=== PATIENT | female | born 1990 | race African-American/Black ===

== ENCOUNTER 2019-08-03 06:58 | Emergency (ER) | payer SELFPAY ==
[2019-08-03] MEDS ORDERED: Sodium Chloride 0.9% 10 ML Syringe FLUSH PRN (07:03)
[2019-08-03] MEDS ORDERED: Sodium Chloride 0.9% 2.5 ML Syringe FLUSH PRN (07:03)
[2019-08-03] MEDS ORDERED: Sodium Chloride 0.9% 1,000 ML IV ONE ×2 (07:03→08:00)
[2019-08-03] MEDS ORDERED: Acetaminophen 500 MG Tab PO ONE (07:03)
[2019-08-03] MEDS ORDERED: Famotidine 20 MG/2 ML SDV IVPUSH ONE (07:11)
--- NOTE | 2019-08-03 07:11 | EDM.PDOC ---
ED HPI GENERAL MEDICAL PROBLEM - General Chief Complaint: General Stated Complaint: POSSIBLE ALLERGIC REACTION Time Seen by Provider: 08/03/19 07:02 - History of Present Illness INITIAL COMMENTS - FREE TEXT/NARRATIVE: History of present illness: 29-year-old female brought by EMS presenting with nausea, vomiting abdominal pain. Symptoms started about 2 hours ago immediately after eating 1 shrimp when she suddenly felt like her mouth was becoming swollen. She stopped eating shrimp immediately and took a Benadryl, however then she developed nausea and vomiting. She has never had any allergy to shrimp in the past, she has previously eaten shrimp many times before. She called EMS when she had been vomiting for 2 hours without stopping. They gave her Zofran IV fluids and her nausea and vomiting is now improved, however she is now having upper abdominal pain. Review of systems: As per history of present illness and below otherwise all systems reviewed and negative. Past medical history: As per history of present illness and as reviewed below otherwise noncontributory. Surgical history: As per history of present illness and as reviewed below otherwise noncontributory. Social history: No reported history of drug or alcohol abuse. Family history: As per history of present illness and as reviewed below otherwise noncontributory. Physical exam: GEN: no acute distress, well appearing HEENT: Atraumatic, normocephalic, mucous membranes moist, Neck: supple, nontender, trachea midline. Lungs: No respiratory distress. Heart: RRR Abdomen: Soft, nondistended, epigastric and right upper quadrant tenderness. Back: nontender Extremities: Atraumatic. Neurovascularly intact. Neuro: Awake, alert, oriented. Neuro Exam nonfocal. Skin: warm, dry, no lesions Diagnostics: [] Therapeutics: [] MDM: Impression: [] Plan: [] Definitive disposition and diagnosis as appropriate pending reevaluation and review of above. Treatments REVENUE STAMP CLERK: Reports: IV/IO throat Pain Score (Numeric/FACES): 2 - Related Data Allergies Allergy/AdvReac Type Severity Reaction Status Date / Time No Known Allergies Allergy Verified 08/03/19 06:59 Home Meds: Home Meds EPINEPHrine [Epinephrine] 0.3 mg IM ONETIME PRN #2 applic 08/03/19 [Rx] predniSONE [Prednisone] 60 mg PO DAILY 5 Days #15 tablet 08/03/19 [Rx] Past Medical History HEENT History: Reports: None Cardiovascular History: Reports: None Respiratory History: Reports: None Gastrointestinal History: Reports: None Genitourinary History: Reports: None SOLAR ENERGY SPECIALIST History: Reports: None Musculoskeletal History: Reports: None Neurological History: Reports: None Psychiatric History: Reports: None Endocrine/Metabolic History: Reports: None Insulin Pump Model and Manager Care Management: None Hematologic History: Reports: None Immunologic History: Reports: None Oncologic (Cancer) History: Reports: None Dermatologic History: Reports: None - Infectious Disease History Infectious Disease History: Reports: None - Past Surgical History Head Surgeries/Procedures: Reports: None Social & Family History - Family History Family Medical History: Noncontributory - Tobacco Use Smoking Status *Q: Never Smoker - Caffeine Use Caffeine Use: Reports: None - Recreational Drug Use Recreational Drug Use: No ED ROS GENERAL - Review of Systems Review Of Systems: See Below (see Dictation) ED EXAM, GENERAL - Physical Exam Exam: See Below (See dictation) Course - Vital Signs Last Recorded V/S: Last Vital Signs Temp 96.4 F L 08/03/19 07:00 Pulse 93 08/03/19 09:12 Resp 18 08/03/19 07:00 BP 100/52 L 08/03/19 09:12 Pulse Ox 98 08/03/19 09:12 - Orders/Labs/Meds Orders: Active Orders 24 hr Category Date Time Status Sodium Chloride 0.9% [Saline Flush] Med 08/03/19 07:03 Active 10 ml FLUSH ASDIRECTED PRN Sodium Chloride 0.9% [Saline Flush] Med 08/03/19 07:03 Active 2.5 ml FLUSH ASDIRECTED PRN Saline Lock Insert [OM.PC] Stat Oth 08/03/19 07:03 Ordered Medication Orders Sodium Chloride (Saline Flush) 10 ml FLUSH ASDIRECTED PRN PRN Reason: Keep Vein Open Sodium Chloride (Saline Flush) 2.5 ml FLUSH ASDIRECTED PRN PRN Reason: Keep Vein Open Labs: Laboratory Tests 08/03/19 08/03/19 08/03/19 Range/Units 07:20 07:20 07:20 WBC 16.67 H (4.0-11.0) K/uL RBC 4.28 L (4.30-5.90) M/uL Hgb 12.7 (12.0-16.0) g/dL Hct 38.6 (36.0-46.0) % MCV 90.2 (80.0-98.0) fL MCH 29.7 (27.0-32.0) pg MCHC 32.9 (31.0-37.0) g/dL RDW Std Deviation 45.6 (28.0-62.0) fl RDW Coeff of Elizabeth 14 (11.0-15.0) % Plt Count 262 (150-400) K/uL MPV 10.00 (7.40-12.00) fL Neut % (Auto) 90.0 H (48.0-80.0) % Lymph % (Auto) 6.8 L (16.0-40.0) % [place] % (Auto) 3.1 (0.0-15.0) % Eos % (Auto) 0.0 (0.0-7.0) % Baso % (Auto) 0.1 (0.0-1.5) % Neut # (Auto) 15.0 H (1.4-5.7) K/uL Lymph # (Auto) 1.1 (0.6-2.4) K/uL [place] # (Auto) 0.5 (0.0-0.8) K/uL Eos # (Auto) 0.0 (0.0-0.7) K/uL Baso # (Auto) 0.0 (0.0-0.1) K/uL Nucleated RBC % 0.0 /100WBC Nucleated RBCs # 0 K/uL Sodium 139 (136-145) mmol/L Potassium 4.7 (3.5-5.1) mmol/L Chloride 100 (98-107) mmol/L Carbon Dioxide 16.3 L (21.0-32.0) mmol/L BUN 13 (7.0-18.0) mg/dL Creatinine 0.9 (0.6-1.0) mg/dL Est Cr Clr Drug Dosing 87.90 mL/min Estimated GFR (MDRD) > 60.0 ml/min Glucose 72 L (74-106) mg/dL Calcium 8.7 (8.5-10.1) mg/dL Total Bilirubin 0.5 (0.2-1.0) mg/dL AST 39 H (15-37) IU/L ALT 24 (14-63) IU/L Alkaline Phosphatase 56 (46-116) U/L Total Protein 7.4 (6.4-8.2) g/dL Albumin 4.1 (3.4-5.0) g/dL Globulin 3.3 (2.6-4.0) g/dL Albumin/Globulin Ratio 1.2 (0.9-1.6) HCG, Qual NEGATIVE (NEG) Meds: Medications Generic Name Dose Route Start Last Admin Trade Name Fretamica PRN Reason Stop Dose Admin Sodium Chloride 10 ml 08/03/19 07:03 Saline Flush FLUSH ASDIRECTED PRN Keep Vein Open Sodium Chloride 2.5 ml 08/03/19 07:03 Saline Flush FLUSH ASDIRECTED PRN Keep Vein Open Discontinued Medications Generic Name Dose Route Start Last Admin Trade Name Alice PRN Reason Stop Dose Admin Acetaminophen 1,000 mg 08/03/19 07:03 08/03/19 07:17 Tylenol Extra Strength PO 08/03/19 07:04 1,000 mg ONETIME ONE Administration Epinephrine HCl 0.3 mg 08/03/19 08:15 08/03/19 08:25 Adrenalin IM 08/03/19 08:16 0.3 mg ONETIME ONE Administration Epinephrine HCl Confirm 08/03/19 08:17 08/03/19 08:28 Adrenalin Administered 08/03/19 08:18 Not Given Dose 1 mg .ROUTE .STK-MED ONE Famotidine 20 mg 08/03/19 07:11 08/03/19 07:18 Pepcid IVPUSH 08/03/19 07:12 20 mg ONETIME ONE Administration Sodium Chloride 1,000 mls @ 999 mls/hr 08/03/19 07:03 08/03/19 07:18 Normal Saline IV 08/03/19 08:03 999 mls/hr .Bolus ONE Administration Sodium Chloride 1,000 mls @ 999 mls/hr 08/03/19 08:00 08/03/19 08:07 Normal Saline IV 08/03/19 09:00 999 mls/hr .Bolus ONE Administration Ketorolac Tromethamine 15 mg 08/03/19 07:51 08/03/19 08:07 Toradol IVPUSH 08/03/19 07:52 15 mg ONETIME ONE Administration Prednisone 40 mg 08/03/19 09:44 08/03/19 09:53 Prednisone PO 08/03/19 09:45 40 mg ONETIME STA Administration - Re-Assessments/Exams Free Text/Narrative Re-Assessment/Exam: 08/03/19 08:03 Patient is feeling much better and sleeping comfortably. She reports her pain is much improved. We will try p.o. challenge and if symptoms not improved will give Toradol. 08/03/19 08:23 She was able to eat a sandwich, however she now feels that her mouth is hurting and burning and possibly swollen again. She does not have any difficulty breathing or rash nor any nausea, vomiting or abdominal pain at this time. I am concerned she may have some relapsing anaphylaxis given her symptoms earlier today that did respond to Benadryl, therefore epinephrine IM will be ordered. I discussed this at length with the patient as well. 08/03/19 10:01 Reassessed at 8:55. The patient was feeling much better. She felt that the abnormal sensation in her mouth was completely resolved. We discussed plan to monitor for 1 more hour. She is in agreement. The patient came out of the nursing station and reported that she had to leave immediately due to family emergency. Her heart rate was slightly elevated but she was very worried and anxious about her family member. Prescriptions were sent electronically to the nearest pharmacy and the patient agrees to pick them up soon as possible. She has no further signs or symptoms of anaphylaxis. Throat feels normal. No difficulty breathing. She is ambulating and in no acute distress. Will discharge immediately. Departure - Departure Time of Disposition: 09:53 Disposition: Home, Self-Care 01 Clinical Impression: Anaphylaxis Qualifiers: Encounter type: initial encounter Qualified Code(s): T78.2XXA - Anaphylactic shock, unspecified, initial encounter Vomiting Qualifiers: Vomiting type: unspecified Vomiting Intractability: non-intractable Nausea presence: with nausea Qualified Code(s): R11.2 - Nausea with vomiting, unspecified Abdominal pain Qualifiers: Abdominal location: generalized Qualified Code(s): R10.84 - Generalized abdominal pain - Discharge Information Prescriptions: EPINEPHrine [Epinephrine] 0.3 mg IM ONETIME PRN #2 applic PRN Reason: Other predniSONE [Prednisone] 60 mg PO DAILY 5 Days #15 tablet Instructions: Nausea and Vomiting, Adult, [id number], How to Use an Auto- Injector Pen, Abdominal Pain, Adult, [id number], Anaphylactic Reaction, Adult , [id number] Referrals: PCP,None [Primary Care Provider] - Forms: ED Department Discharge Additional Instructions: The following information is given to patients seen in the emergency department who are being discharged to home. This information is to outline your options for follow-up care. We provide all patients seen in our emergency department with a follow-up referral. The need for follow-up, as well as the timing and circumstances, are variable depending upon the specifics of your emergency department visit. If you don't have a primary care physician on staff, we will provide you with a referral. We always advise you to contact your personal physician following an emergency department visit to inform them of the circumstance of the visit and for follow-up with them and/or the need for any referrals to a consulting specialist. The emergency department will also refer you to a specialist when appropriate. This referral assures that you have the opportunity for follow-up care with a specialist. All of these measure are taken in an effort to provide you with optimal care, which includes your follow-up. Under all circumstances we always encourage you to contact your private physician who remains a resource for coordinating your care. When calling for follow-up care, please make the office aware that this follow-up is from your recent emergency room visit. If for any reason you are refused follow-up, please contact the [facility] Emergency Department at and asked to speak to the emergency department charge nurse. [facility] [address] [place] [id number] [facility] [address] [place] [id number] Sepsis Event Note (ED) - Evaluation Sepsis Screening Result: No Definite Risk - Focused Exam Vital Signs: Vital Signs Temp Pulse Resp BP Pulse Ox 08/03/19 09:12 93 100/52 L 98 08/03/19 08:27 100 113/71 97 08/03/19 07:42 88 111/59 L 97 08/03/19 07:12 91 121/68 97 08/03/19 07:00 96.4 F L 93 18 112/46 L 96 - My Orders Last 24 Hours: My Active Orders 08/03/19 07:03 Sodium Chloride 0.9% [Saline Flush] 10 ml FLUSH ASDIRECTED PRN Sodium Chloride 0.9% [Saline Flush] 2.5 ml FLUSH ASDIRECTED PRN Saline Lock Insert [OM.PC] Stat - Assessment/Plan Last 24 Hours: My Active Orders 08/03/19 07:03 Sodium Chloride 0.9% [Saline Flush] 10 ml FLUSH ASDIRECTED PRN Sodium Chloride 0.9% [Saline Flush] 2.5 ml FLUSH ASDIRECTED PRN Saline Lock Insert [OM.PC] Stat
[2019-08-03 07:50] LABS: BLOOD UREA NITROGEN,BUN 13 mg/dL (7.0-18.0); CARBON DIOXIDE,CO2 16.3 mmol/L (21.0-32.0); CHLORIDE,CL 100 mmol/L (98-107); GLUCOSE RANDOM 72 mg/dL (74-106); POTASSIUM,K 4.7 mmol/L (3.5-5.1); SODIUM,NA 139 mmol/L (136-145)
[2019-08-03] MEDS ORDERED: Ketorolac 15 MG/ML SDV IVPUSH ONE (07:51)
[2019-08-03] MEDS ORDERED: EPINEPHrine 1 MG/ML SDV IM ONE (08:15)
[2019-08-03] MEDS ORDERED: EPINEPHrine 1 MG/ML SDV ONE (08:17)
[2019-08-03] MEDS ORDERED: predniSONE 20 MG Tab PO STA (09:44)
== END 2019-08-03 10:00 | disposition home or self-care (01) ==
LOC: MW.ED 06:58
DX: T78.2XXA Anaphylactic shock, unspecified, initial encounter (principal); R11.2 Nausea with vomiting, unspecified; R10.84 Generalized abdominal pain; Z79.899 Other long term (current) drug therapy
CPT/HCPCS: 36415; 80053; 84703; 85025; 96361; 96372; 96374; 96375; 99285; A9270; J0171; J1885; J7030; S0028; J3490

== ENCOUNTER 2019-09-06 11:54 | Emergency (ER) | payer SELFPAY ==
--- NOTE | 2019-09-06 13:09 | CR ---
Left foot: 2 views of the left foot were obtained. Comparison: No prior foot exam is available. No discrete fracture or other bony abnormality is appreciated. Impression: 1. No abnormality is appreciated on left foot exam. Diagnostic code #1 This report was dictated in MDT
--- NOTE | 2019-09-06 14:19 | EDM.PDOC ---
ED HPI GENERAL MEDICAL PROBLEM - General Chief Complaint: Lower Extremity Injury/Pain Stated Complaint: TOE SPRAIN Time Seen by Provider: 09/06/19 13:23 - History of Present Illness INITIAL COMMENTS - FREE TEXT/NARRATIVE: History of present illness: 29-year-old female presenting with left great toe/foot pain. Apparently she was running last night and around 9 PM tripped and rolled her foot underneath her. She reports difficulty moving the toe since then. She has been able to bear weight on the foot. Review of systems: As per history of present illness and below otherwise all systems reviewed and negative. Past medical history: As per history of present illness and as reviewed below otherwise noncontributory. Surgical history: As per history of present illness and as reviewed below otherwise noncontributory. Social history: No reported history of drug or alcohol abuse. Family history: As per history of present illness and as reviewed below otherwise noncontributory. Physical exam: GEN: no acute distress, well appearing HEENT: Atraumatic, normocephalic, mucous membranes moist Neck: supple Extremities: Tenderness to palpation over the distal left foot/great toe. Limited range of motion due to pain and slightly decreased strength, however she is able to fully dorsiflex and plantarflex. No sensory deficit. Neurovascularly intact. Neuro: Awake, alert, oriented. Neuro Exam nonfocal. Skin: warm, dry, no lesions Diagnostics: X-ray left foot. Negative for fracture. Therapeutics: Abimael wrap and cast shoe. MDM: X-ray shows no fracture, however as the patient is reporting difficulty dorsiflexing and plantar flexing the foot, likely due to pain, however potential for mild tendon or ligamentous injury, will place an Abimael wrap and hard soled shoe and refer to podiatry. Impression: Left hallux sprain Plan: Podiatry Definitive disposition and diagnosis as appropriate pending reevaluation and review of above. L great toe Pain Score (Numeric/FACES): 10 - Related Data Allergies Allergy/AdvReac Type Severity Reaction Status Date / Time No Known Allergies Allergy Verified 09/06/19 12:07 Home Meds: Home Meds EPINEPHrine [Epinephrine] 0.3 mg IM ONETIME PRN #2 applic 08/03/19 [Rx] predniSONE [Prednisone] 60 mg PO DAILY 5 Days #15 tablet 08/03/19 [Rx] Past Medical History HEENT History: Reports: None Cardiovascular History: Reports: None Respiratory History: Reports: None Gastrointestinal History: Reports: None Genitourinary History: Reports: None FACILITY COORDINATOR History: Reports: None Musculoskeletal History: Reports: None Neurological History: Reports: None Psychiatric History: Reports: None Endocrine/Metabolic History: Reports: None Insulin Pump Model and Soap Tender: None Hematologic History: Reports: None Immunologic History: Reports: None Oncologic (Cancer) History: Reports: None Dermatologic History: Reports: None - Infectious Disease History Infectious Disease History: Reports: None - Past Surgical History Head Surgeries/Procedures: Reports: None Social & Family History - Family History Family Medical History: Noncontributory - Caffeine Use Caffeine Use: Reports: None Review of Systems - Review of Systems Review Of Systems: See Below (See HPI) ED EXAM, GENERAL - Physical Exam Exam: See Below (See HPI) Course - Vital Signs Last Recorded V/S: Last Vital Signs Temp 96.7 F L 09/06/19 12:05 Pulse 90 09/06/19 12:05 Resp 18 09/06/19 12:05 BP 100/61 09/06/19 12:05 Pulse Ox 100 09/06/19 12:05 - Orders/Labs/Meds Orders: Active Orders 24 hr Category Date Time Status DME for Discharge [COMM] Stat Oth 09/06/19 14:13 Ordered - Re-Assessments/Exams Free Text/Narrative Re-Assessment/Exam: 09/06/19 14:16 X-ray results and plan of care discussed with the patient. Will place an Abimael wrap and hard soled shoe/cast/postop shoe. Will refer for podiatry versus orthopedics follow-up. Departure - Departure Time of Disposition: 14:16 Disposition: Home, Self-Care 01 Clinical Impression: Sprain of toe, great, left - Discharge Information Instructions: How to Use Cold Therapy, Qsvz-fo-Mqoe, Turf Toe Rehab-SportsMed Referrals: PCP,None [Primary Care Provider] - Mauri Tello DPM [Physician] - 2 Days Forms: ED Department Discharge Additional Instructions: Ice the area that hurts. Take 600 mg of ibuprofen every 8 hours for the next 2 to 3 days. Keep the foot elevated as much as possible. Keep the Abimael wrap on and use the hard soled shoe whenever walking on your foot. Please follow-up with the utility assembler listed above or the orthopedic surgeon listed below in the next 1 to 2 days unless her symptoms have completely resolved during that time. The following information is given to patients seen in the emergency department who are being discharged to home. This information is to outline your options for follow-up care. We provide all patients seen in our emergency department with a follow-up referral. The need for follow-up, as well as the timing and circumstances, are variable depending upon the specifics of your emergency department visit. If you don't have a primary care physician on staff, we will provide you with a referral. We always advise you to contact your personal physician following an emergency department visit to inform them of the circumstance of the visit and for follow-up with them and/or the need for any referrals to a consulting specialist. The emergency department will also refer you to a specialist when appropriate. This referral assures that you have the opportunity for follow-up care with a specialist. All of these measure are taken in an effort to provide you with optimal care, which includes your follow-up. Under all circumstances we always encourage you to contact your private physician who remains a resource for coordinating your care. When calling for follow-up care, please make the office aware that this follow-up is from your recent emergency room visit. If for any reason you are refused follow-up, please contact the [facility] Emergency De partment at and asked to speak to the emergency department charge nurse. Please follow-up with orthopedic clinic in the next 2 days or the utility assembler listed above. [facility] - [facility] Professional Building [address] [place] [address], [address] [place] [address] Sepsis Event Note (ED) - Evaluation Sepsis Screening Result: No Definite Risk - My Orders Last 24 Hours: My Active Orders 09/06/19 14:13 DME for Discharge [COMM] Stat - Assessment/Plan Last 24 Hours: My Active Orders 09/06/19 14:13 DME for Discharge [COMM] Stat
== END 2019-09-06 14:51 | disposition home or self-care (01) ==
LOC: MW.ED 11:54
DX: S93.502A Unspecified sprain of left great toe, initial encounter (principal); Z79.899 Other long term (current) drug therapy; W01.0XXA Fall on same level from slipping, tripping and stumbling without subsequent striking against object, initial encounter
CPT/HCPCS: 73620-26-LT; 73620-LT; 99282; 99283-25

== ENCOUNTER 2019-09-14 13:29 | Emergency (ER) | payer SELFPAY | END 2019-09-14 14:17 | disposition left against medical advice (07) | LOC: MW.ED 13:29 | DX: Z53.21 Procedure and treatment not carried out due to patient leaving prior to being seen by health care provider (principal) ==

== ENCOUNTER 2020-04-18 18:08 | Emergency (ER) | payer SELFPAY ==
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
== END 2020-04-18 20:49 | disposition left against medical advice (07) ==
LOC: MW.ED 18:08
DX: S50.11XA Contusion of right forearm, initial encounter (principal); S09.90XA Unspecified injury of head, initial encounter; S19.9XXA Unspecified injury of neck, initial encounter; Y04.0XXA Assault by unarmed brawl or fight, initial encounter
CPT/HCPCS: 70450; 70450-26; 72125; 72125-26; 72128; 72128-26; 73030-26-RT; 73030-RT; 73070-26-RT; 73070-RT; 73100-26-RT; 73100-RT; 81001; 81025; 87086; 99283; 99285-25

== ENCOUNTER 2020-07-03 13:28 | Emergency (ER) | payer SELFPAY ==
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
--- NOTE | 2020-07-03 15:44 | EDM.PDOC ---
ED HPI GENERAL MEDICAL PROBLEM - General Chief Complaint: Lower Extremity Injury/Pain Stated Complaint: KNEE INJURY/PAIN Time Seen by Provider: 07/03/20 14:35 Source of Information: Reports: Patient History Limitations: Reports: No Limitations - History of Present Illness INITIAL COMMENTS - FREE TEXT/NARRATIVE: HISTORY AND PHYSICAL: History of present illness: Patient is a 30-year-old female who presents to the ED today with concern of left knee injury that occurred 2 weeks ago. Patient states that ever since the injury, she has had pain of the left knee. Patient states that she was walking and slipped and twisted her left knee 2 weeks ago. Patient states that she has pain more of the inside of the left knee and with bending. Patient states that she has been walking on the leg but has pain with doing so. Patient states that she came to the emergency room today because the pain has not been getting better despite time and she is having a hard time with work. Patient denies any head injury or loss of consciousness or any redness or any other associative symptoms. Patient denies fever, chills, chest pain, shortness of breath, or cough. Denies headache, neck stiff ness, change in vision, syncope, or near syncope. Denies nausea, vomiting, abdominal pain, diarrhea, constipation, or dysuria. Has not noted any blood in urine or stool. Patient has been eating and drinking appropriately. Review of systems: As per history of present illness and below otherwise all systems reviewed and negative. Past medical history: As per history of present illness and as reviewed below otherwise noncontributory. Surgical history: As per history of present illness and as reviewed below otherwise noncontributory. Social history: See social history for further information Family history: As per history of present illness and as reviewed below otherwise noncontributory. Physical exam: General: Patient is alert, oriented, and in no acute distress. Patient laying comfortably on exam table. Vitals stable and reviewed by me HEENT: Atraumatic, normocephalic, pupils equal and reactive bilaterally, negative for conjunctival pallor or scleral icterus, mucous membranes moist, TMs normal bilaterally, throat clear, neck supple, nontender, trachea midline. No drooling or trismus noted. No meningeal signs. No hot potato voice noted. Lungs: Clear to auscultation, breath sounds equal bilaterally, chest nontender. Heart: S1S2, regular rate and rhythm without overt murmur Abdomen: Soft, nondistended, nontender. Negative for masses or hepatosplenomegaly. Negative for costovertebral tenderness. Pelvis: Stable nontender. Genitourinary: Deferred. Rectal: Deferred. Skin: Intact, warm, dry. No lesions or rashes noted. Extremities: Atraumatic, negative for cords or calf pain. Neurovascular unremarkable. Neuro: Awake, alert, oriented. Cranial nerves II through XII unremarkable. Cerebellum unremarkable. Motor and sensory unremarkable throughout. Exam nonfocal. Notes: Patient is a 30-year-old female who presents to the emergency room today secondary to left knee injury that occurred 2 weeks ago however has continued left knee. Upon arrival to the ED, patient is vitally stable and well-appearing but does have pain with valgus stress of the left knee and pain with range of motion of the left knee. No erythema or edema noted of the left knee and no increase in warmth. Will perform x-ray of the left knee. X-ray shows no acute fractures or dislocations of the left knee. However, given that patient has injured the left knee with continued pain for 2 weeks, will immobilize the knee and give crutches and refer to orthopedic provider for possible ligamentous/meniscus injury. Upon reevaluation of patient, she remains vitally stable and comfortable th roughout stay in ED. Signs and symptoms that were prompt return to the ED thoroughly discussed with patient. Discussed importance for follow-up with an orthopedic provider. Voices understanding and is agreeable to plan of care. Denies any further questions or concerns at this time. Diagnostics: Knee x-ray, left Therapeutics: Crutches and knee immobilizerto use until orthopedic evaluation for pain reduction/joint stabilization. Diagnosis left knee strain/injury rule out ligamentous injury Prescription: None Impression: Left knee injury/strain, r/o ligamentous injury Plan. 1 Rest, ice, elevate the affected extremity. You can apply ice 15 minutes on, 15 minutes off. Use the knee immobilizer and crutches until orthopedic evaluation as discussed. 2. Tylenol and/or Ibuprofen as directed for pain management or discomfort. 3. Follow up with the Orthopedic provider as discussed. Return to the ED as needed and as discussed. Definitive disposition and diagnosis as appropriate pending reevaluation and review of above. Left Knee Pain Score (Numeric/FACES): 10 - Related Data Allergies Allergy/AdvReac Type Severity Reaction Status Date / Time shrimp Allergy Other Verified 07/03/20 14:36 Home Meds: Home Meds . [No Known Home Meds] 04/18/20 [History] Past Medical History - Past Health History Medical/Surgical History: Denies Medical/Surgical History HEENT History: Reports: None Cardiovascular History: Reports: None Respiratory History: Reports: None Gastrointestinal History: Reports: None Genitourinary History: Reports: None SOCCER PLAYER History: Reports: None Musculoskeletal History: Reports: None Neurological History: Reports: None Psychiatric History: Reports: None Endocrine/Metabolic History: Reports: None Insulin Pump Model and Manager Lean: None Hematologic History: Reports: None Immunologic History: Reports: None Oncologic (Cancer) History: Reports: None Dermatologic History: Reports: None - Infectious Disease History Infectious Disease History: Reports: Chicken Pox - Past Surgical History Head Surgeries/Procedures: Reports: None Social & Family History - Family History Family Medical History: No Pertinent Family History - Tobacco Use Tobacco Use Status *Q: Never Tobacco User - Caffeine Use Caffeine Use: Reports: Soda - Recreational Drug Use Recreational Drug Use: No Review of Systems - Review of Systems Review Of Systems: Comprehensive ROS is negative, except as noted in HPI. ED EXAM, GENERAL - Physical Exam Exam: See Below (see dictation) Course - Vital Signs Last Recorded V/S: Last Vital Signs Temp 97.2 F 07/03/20 14:37 Pulse 74 07/03/20 14:37 Resp 18 07/03/20 14:37 BP 110/62 07/03/20 14:37 Pulse Ox 100 07/03/20 14:37 - Orders/Labs/Meds Orders: Active Orders 24 hr Category Date Time Status DME for Discharge [COMM] Stat Oth 07/03/20 15:42 Ordered Departure - Departure Time of Disposition: 15:43 Disposition: Home, Self-Care 01 Clinical Impression: Knee strain Qualifiers: Encounter type: initial encounter Laterality: left Qualified Code(s): S86.912A - Strain of unspecified muscle(s) and tendon(s) at lower leg level, left leg, initial encounter Knee injury Qualifiers: Encounter type: initial encounter Laterality: left Qualified Code(s): S89.92XA - Unspecified injury of left lower leg, initial encounter - Discharge Information Instructions: Knee Sprain, Adult Referrals: PCP,None [Primary Care Provider] - Forms: ED Department Discharge Additional Instructions: The following information is given to patients seen in the emergency department who are being discharged to home. This information is to outline your options for follow-up care. We provide all patients seen in our emergency department with a follow-up referral. The need for follow-up, as well as the timing and circumstances, are variable depending upon the specifics of your emergency department visit. If you don't have a primary care physician on staff, we will provide you with a referral. We always advise you to contact your personal physician following an emergency department visit to inform them of the circumstance of the visit and for follow-up with them and/or the need for any referrals to a consulting specialist. The emergency department will also refer you to a specialist when appropriate. This referral assures that you have the opportunity for follow-up care with a specialist. All of these measure are taken in an effort to provide you with optimal care, which includes your follow-up. Under all circumstances we always encourage you to contact your private physician who remains a resource for coordinating your care. When calling for follow-up care, please make the office aware that this follow-up is from your recent emergency room visit. If for any reason you are refused follow-up, please contact the [facility] Emergency Department at and asked to speak to the emergency department charge nurse. [facility] [address] [place] [address] [address] [facility] Professional Building [address] [place] [address], [address] [place] [address] Dr Garcia, Orthopedist [facility] [address] [facility] [place] [address] Dr Gross - Dr Spence - Dr Macias [facility] [place] [address] [place] [address] [facility] [address] [place], [place] [address] 1. Rest, ice, elevate the affected extremity. You can apply ice 15 minutes on, 15 minutes off. Use the knee immobilizer and crutches until orthopedic evaluation as discussed. 2. Tylenol and/or Ibuprofen as directed for pain management or discomfort. 3. Follow up with the Orthopedic provider as discussed. Return to the ED as needed and as discussed. Sepsis Event Note (ED) - Evaluation Sepsis Screening Result: No Definite Risk - Focused Exam Vital Signs: Vital Signs Temp Pulse Resp BP Pulse Ox 07/03/20 14:37 97.2 F 74 18 110/62 100 - My Orders Last 24 Hours: My Active Orders 07/03/20 15:42 DME for Discharge [COMM] Stat - Assessment/Plan Last 24 Hours: My Active Orders 07/03/20 15:42 DME for Discharge [COMM] Stat
== END 2020-07-03 16:00 | disposition home or self-care (01) ==
LOC: MW.ED 13:28
DX: S86.912A Strain of unspecified muscle(s) and tendon(s) at lower leg level, left leg, initial encounter (principal); Z91.013 Allergy to seafood; X50.1XXA Overexertion from prolonged static or awkward postures, initial encounter
CPT/HCPCS: 73562-26-LT; 73562-LT; 99283

== ENCOUNTER 2020-08-25 10:36 | Emergency (ER) | payer SELFPAY ==
--- NOTE | 2020-08-25 11:01 | EDM.PDOC ---
ED HPI GENERAL MEDICAL PROBLEM - General Chief Complaint: Abdominal Pain Stated Complaint: CRAMPING AND IS Time Seen by Provider: 08/25/20 10:37 Source of Information: Reports: Patient History Limitations: Reports: No Limitations - History of Present Illness INITIAL COMMENTS - FREE TEXT/NARRATIVE: Patient is a 30-year-old female who presents today for abdominal cramps. Patient she took a home pricey test and states she is not her last period was last month. States the cramping is mostly lower. She denies any vaginal bleeding or discharge. She has had 3 C-sections in the past has never had these cramps or pain. Previous pregnancies. She did also report some nausea vomiting. Patient not take any medicine for the pain at home. lower abdomen Pain Score (Numeric/FACES): 10 - Related Data Allergies Allergy/AdvReac Type Severity Reaction Status Date / Time shrimp Allergy Other Verified 08/25/20 10:51 Home Meds: Home Meds . [No Known Home Meds] 04/18/20 [History] Past Medical History - Past Health History Medical/Surgical History: Denies Medical/Surgical History HEENT History: Reports: None Cardiovascular History: Reports: None Respiratory History: Reports: None Gastrointestinal History: Reports: None Genitourinary History: Reports: None HEAD PUMPER History: Reports: None Musculoskeletal History: Reports: None Neurological History: Reports: None Psychiatric History: Reports: None Endocrine/Metabolic History: Reports: None Insulin Pump Model and Soil Conservation Aide: None Hematologic History: Reports: None Immunologic History: Reports: None Oncologic (Cancer) History: Reports: None Dermatologic History: Reports: None - Infectious Disease History Infectious Disease History: Reports: Chicken Pox - Past Surgical History Head Surgeries/Procedures: Reports: None Social & Family History - Family History Family Medical History: No Pertinent Family History - Caffeine Use Caffeine Use: Reports: Soda ED ROS GENERAL - Review of Systems Review Of Systems: See Below Constitutional: Reports: No Symptoms HEENT: Reports: No Symptoms Respiratory: Reports: No Symptoms Cardiovascular: Reports: No Symptoms Endocrine: Reports: No Symptoms GI/Abdominal: Reports: Abdominal Pain : Reports: No Symptoms Musculoskeletal: Reports: No Symptoms Skin: Reports: No Symptoms Neurological: Reports: No Symptoms Psychiatric: Reports: No Symptoms Hematologic/Lymphatic: Reports: No Symptoms Immunologic: Reports: No Symptoms ED EXAM - Physical Exam Exam: See Below General Appearance: Alert, WD/WN, No Apparent Distress Respiratory/Chest: No Respiratory Distress, Lungs Clear Cardiovascular: Normal Peripheral Pulses, Regular Rate, Rhythm GI/Abdominal Exam: Normal Bowel Sounds, Soft, Tender Neurological: Alert, Oriented Course - Vital Signs Last Recorded V/S: Last Vital Signs Temp 97.3 F 08/25/20 10:48 Pulse 85 08/25/20 10:48 Resp 18 08/25/20 10:48 BP 117/72 08/25/20 10:48 Pulse Ox 98 08/25/20 10:48 - Orders/Labs/Meds Labs: Laboratory Tests 08/25/20 08/25/20 08/25/20 Range/Units 10:45 10:45 10:45 WBC 8.90 (4.0-11.0) K/uL RBC 4.19 L (4.30-5.90) M/uL Hgb 13.0 (12.0-16.0) g/dL Hct 38.8 (36.0-46.0) % MCV 92.6 (80.0-98.0) fL MCH 31.0 (27.0-32.0) pg MCHC 33.5 (31.0-37.0) g/dL RDW Std Deviation 42.6 (28.0-62.0) fl RDW Coeff of Elizabeth 13 (11.0-15.0) % Plt Count 241 (150-400) K/uL MPV 10.50 (7.40-12.00) fL Neut % (Auto) 61.0 (48.0-80.0) % Lymph % (Auto) 30.9 (16.0-40.0) % Mckean % (Auto) 7.5 (0.0-15.0) % Eos % (Auto) 0.3 (0.0-7.0) % Baso % (Auto) 0.3 (0.0-1.5) % Neut # (Auto) 5.4 (1.4-5.7) K/uL Lymph # (Auto) 2.8 H (0.6-2.4) K/uL Mckean # (Auto) 0.7 (0.0-0.8) K/uL Eos # (Auto) 0.0 (0.0-0.7) K/uL Baso # (Auto) 0.0 (0.0-0.1) K/uL Nucleated RBC % 0.0 /100WBC Nucleated RBCs # 0 K/uL Sodium 138 (136-145) mmol/L Potassium 3.4 L (3.5-5.1) mmol/L Chloride 102 (98-107) mmol/L Carbon Dioxide 27.0 (21.0-32.0) mmol/L BUN 8 (7.0-18.0) mg/dL Creatinine 0.8 (0.6-1.0) mg/dL Est Cr Clr Drug Dosing 98.01 mL/min Estimated GFR (MDRD) > 60.0 ml/min Glucose 87 (74-106) mg/dL Calcium 8.8 (8.5-10.1) mg/dL Phosphorus 3.3 (2.6-4.7) mg/dL Magnesium 1.7 L (1.8-2.4) mg/dL Total Bilirubin 0.5 (0.2-1.0) mg/dL AST 23 (15-37) IU/L ALT 23 (14-63) IU/L Alkaline Phosphatase 56 (46-116) U/L Total Protein 7.4 (6.4-8.2) g/dL Albumin 3.7 (3.4-5.0) g/dL Globulin 3.7 (2.6-4.0) g/dL Albumin/Globulin Ratio 1.0 (0.9-1.6) HCG, Quant < 1.0 mIU/mL Urine Color Urine Appearance Urine pH (5.0-8.0) Ur Specific Avery (1.001-1.035) Urine Protein (NEGATIVE) mg/dL Urine Glucose (UA) (NEGATIVE) mg/dL Urine Ketones (NEGATIVE) mg/dL Urine Occult Blood (NEGATIVE) Urine Nitrite (NEGATIVE) Urine Bilirubin (NEGATIVE) Urine Urobilinogen (<2.0) EU/dL Ur Leukocyte Esterase (NEGATIVE) Urine HCG, Qual (NEGATIVE) Blood Type O POSITIVE 08/25/20 08/25/20 Range/Units 11:33 11:39 WBC (4.0-11.0) K/uL RBC (4.30-5.90) M/uL Hgb (12.0-16.0) g/dL Hct (36.0-46.0) % MCV (80.0-98.0) fL MCH (27.0-32.0) pg MCHC (31.0-37.0) g/dL RDW Std Deviation (28.0-62.0) fl RDW Coeff of Elizabeth (11.0-15.0) % Plt Count (150-400) K/uL MPV (7.40-12.00) fL Neut % (Auto) (48.0-80.0) % Lymph % (Auto) (16.0-40.0) % Mckean % (Auto) (0.0-15.0) % Eos % (Auto) (0.0-7.0) % Baso % (Auto) (0.0-1.5) % Neut # (Auto) (1.4-5.7) K/uL Lymph # (Auto) (0.6-2.4) K/uL Mckean # (Auto) (0.0-0.8) K/uL Eos # (Auto) (0.0-0.7) K/uL Baso # (Auto) (0.0-0.1) K/uL Nucleated RBC % /100WBC Nucleated RBCs # K/uL Sodium (136-145) mmol/L Potassium (3.5-5.1) mmol/L Chloride (98-107) mmol/L Carbon Dioxide (21.0-32.0) mmol/L BUN (7.0-18.0) mg/dL Creatinine (0.6-1.0) mg/dL Est Cr Clr Drug Dosing mL/min Estimated GFR (MDRD) ml/min Glucose (74-106) mg/dL Calcium (8.5-10.1) mg/dL Phosphorus (2.6-4.7) mg/dL Magnesium (1.8-2.4) mg/dL Total Bilirubin (0.2-1.0) mg/dL AST (15-37) IU/L ALT (14-63) IU/L Alkaline Phosphatase (46-116) U/L Total Protein (6.4-8.2) g/dL Albumin (3.4-5.0) g/dL Globulin (2.6-4.0) g/dL Albumin/Globulin Ratio (0.9-1.6) HCG, Quant mIU/mL Urine Color YELLOW Urine Appearance CLEAR Urine pH 7.5 (5.0-8.0) Ur Specific Avery 1.020 (1.001-1.035) Urine Protein NEGATIVE (NEGATIVE) mg/dL Urine Glucose (UA) NEGATIVE (NEGATIVE) mg/dL Urine Ketones NEGATIVE (NEGATIVE) mg/dL Urine Occult Blood NEGATIVE (NEGATIVE) Urine Nitrite NEGATIVE (NEGATIVE) Urine Bilirubin NEGATIVE (NEGATIVE) Urine Urobilinogen 0.2 (<2.0) EU/dL Ur Leukocyte Esterase NEGATIVE (NEGATIVE) Urine HCG, Qual NEGATIVE (NEGATIVE) Blood Type Meds: Medications Discontinued Medications Generic Name Dose Route Start Last Admin Trade Name Juliánq PRN Reason Stop Dose Admin Acetaminophen 650 mg 08/25/20 11:06 08/25/20 11:26 Acetaminophen 325 Mg Tab PO 08/25/20 11:07 650 mg NOW ONE Administration Sodium Chloride 1,000 mls @ 999 mls/hr 08/25/20 11:06 08/25/20 11:26 Normal Saline IV 08/25/20 12:06 999 mls/hr .BOLUS ONE Administration Ketorolac Tromethamine 30 mg 08/25/20 11:57 08/25/20 12:30 Ketorolac 30 Mg/Ml Sdv IVPUSH 08/25/20 11:58 30 mg ONETIME ONE Administration Pyridoxine HCl 25 mg 08/25/20 11:45 08/25/20 11:58 Vitamin B6-Pyridoxine 50 Mg Tab PO 08/25/20 11:46 Not Given ONETIME ONE - Re-Assessments/Exams Free Text/Narrative Re-Assessment/Exam: 08/25/20 12:45 Patient urine and blood procedure both negative. Patient ultrasound negative as well. Patient was given Toradol for abdominal pain. Patient also has no urinary tract infection or no vaginal discharge. Patient be discharged home to follow-up primary care physician. Departure - Departure Time of Disposition: 12:46 Disposition: Home, Self-Care 01 Condition: Good Clinical Impression: Abdominal cramping - Discharge Information *PRESCRIPTION DRUG MONITORING PROGRAM REVIEWED*: Not Applicable *COPY OF PRESCRIPTION DRUG MONITORING REPORT IN PATIENT MINI: Not Applicable Instructions: Abdominal Pain, Adult, [id number] Referrals: PCP,None [Primary Care Provider] - Forms: ED Department Discharge Additional Instructions: The following information is given to patients seen in the emergency department who are being discharged to home. This information is to outline your options for follow-up care. We provide all patients seen in our emergency department with a follow-up referral. The need for follow-up, as well as the timing and circumstances, are variable depending upon the specifics of your emergency department visit. If you don't have a primary care physician on staff, we will provide you with a referral. We always advise you to contact your personal physician following an emergency department visit to inform them of the circumstance of the visit and for follow-up with them and/or the need for any referrals to a consulting specialist. The emergency department will also refer you to a specialist when appropriate. This referral assures that you have the opportunity for follow-up care with a specialist. All of these measure are taken in an effort to provide you with optimal care, which includes your follow-up. Under all circumstances we always encourage you to contact your private phys ician who remains a resource for coordinating your care. When calling for follow-up care, please make the office aware that this follow-up is from your recent emergency room visit. If for any reason you are refused follow-up, please contact the [facility] Emergency Department at and asked to speak to the emergency department charge nurse. Please follow up with your primary care physician. If you do not have a primary care physician, see below: [facility] [address] [place] [id number] [facility] [address] [place] [id number] You were seen today for lower abdominal pain and cramping. Your positive test at home however we did urine and blood which both came back negative did not show any signs of . Listed ultrasound did not show any signs of recent as well. We checked your urine did not show any signs of infection. We have unclear cause with of your abdominal cramping. If you have any other concerning signs or symptoms in the future and reviewed the next few days please return to the ED. Sepsis Event Note (ED) - Evaluation Sepsis Screening Result: No Definite Risk - Focused Exam Vital Signs: Vital Signs Temp Pulse Resp BP Pulse Ox 08/25/20 10:48 97.3 F 85 18 117/72 98 - Assessment/Plan Plan: Patient is a 30-year-old female who presents today for lower abdominal cramping. Patient states to the home present test. She denies any vaginal bleeding or discharge. Will get a ultrasound to confirm IUP Tylenol for pain control obtain UA labs.
[2020-08-25] MEDS ORDERED: Acetaminophen 325 MG Tab PO ONE (11:06)
[2020-08-25] MEDS ORDERED: Vitamin B6-pyridOXINE 100 MG/ML SDV IV STA (11:06)
[2020-08-25] MEDS ORDERED: Sodium Chloride 0.9% 1,000 ML IV ONE (11:06)
[2020-08-25 11:38] LABS: BLOOD UREA NITROGEN,BUN 8 mg/dL (7.0-18.0); CHLORIDE,CL 102 mmol/L (98-107); GLUCOSE RANDOM 87 mg/dL (74-106); POTASSIUM,K 3.4 mmol/L (3.5-5.1); SODIUM,NA 138 mmol/L (136-145)
[2020-08-25] MEDS: Vitamin B6-pyridOXINE 50 MG Tab PO ONE ×2 (11:54→11:58)
[2020-08-25] MEDS ORDERED: Ketorolac 30 MG/ML SDV IVPUSH ONE (11:57)
--- NOTE | 2020-08-25 11:59 | US ---
INDICATION: Abdominal cramping. TECHNIQUE: Ultrasound OB pelvis transabdominal and transvaginal. Real-time partida-scale imaging of the pelvis was performed. COMPARISON: None FINDINGS: No sign of intrauterine or ectopic . Endometrium is empty and measures 6 mm in thickness. The ovaries are of normal size. There are no suspicious fluid collections noted in the cul-de-sac. IMPRESSION: Unremarkable pelvic ultrasound. No signs of . Dictated by Сергей Shaver MD @ 08/25/2020 11:58:[address] Сергей Shaver @ Aug 25 2020 11:58AM
== END 2020-08-25 13:11 | disposition home or self-care (01) ==
LOC: MW.ED 10:36
DX: R10.30 Lower abdominal pain, unspecified (principal); Z91.013 Allergy to seafood
CPT/HCPCS: 36415; 76801; 80053; 81003; 81025; 83735; 84100; 84702; 85025; 86900; 86901; 96374; 99284; A9270; J1885; J7030

== ENCOUNTER 2020-10-19 18:10 | Emergency (ER) | payer SELFPAY ==
--- NOTE | 2020-10-19 20:42 | EDM.PDOC ---
ED HPI GENERAL MEDICAL PROBLEM - General Chief Complaint: Lower Extremity Injury/Pain Stated Complaint: LEFT KNEE BUILDING FLUID Time Seen by Provider: 10/19/20 20:21 Source of Information: Reports: Patient History Limitations: Reports: No Limitations - History of Present Illness INITIAL COMMENTS - FREE TEXT/NARRATIVE: HISTORY AND PHYSICAL: History of present illness: Patient is a 30-year-old female who presents to the emergency room with complaints of left knee pain. She states a few months ago she was seen in our emergency room and was diagnosed with a knee fracture. Due to not having health insurance she never had surgery. She has been using a knee immobilizer and tried to "stay off of it". Over the past few days she has been "running around at work" and has had increased pain and swelling of the knee. She denies any new injury, trauma or falls. She denies any numbness, tingling, saddle paresthesias. Review of systems: As per history of present illness and below otherwise all systems reviewed and negative. Past medical history: As per history of present illness and as reviewed below otherwise noncontributory. Surgical history: As per history of present illness and as reviewed below otherwise noncontributory. Social history: See social history for further information Family history: As per history of present illness and as reviewed below otherwise noncontributory. Physical exam: General: Well developed and well nourished 30-year-old black female. Alert and orientated x 3. Nontoxic in appearance and in no acute distress. Vital signs are stable and have been reviewed by me. Nursing notes were reviewed. HEENT: Atraumatic, normocephalic, pupils equal and reactive bilaterally, negative for conjunctival pallor or scleral icterus, mucous membranes moist, trachea midline. No drooling or trismus noted. No meningeal signs. No hot potato voice noted. Lungs: Clear to auscultation bilaterally. No wheezes, rales, or rhonchi. Chest nontender. Normal work of breathing, no accessory muscles used. Heart: S1S2, regular rate and rhythm without overt murmur, gallops, or rubs. No JVD. No peripheral edema Abdomen: Soft, nondistended, nontender. Skin: Intact, warm, dry. No lesions or rashes noted. Hematologic: No petechiae or purpra. Mucosa appropriate color and normal nail bed color and refill. Extremities: Atraumatic, moves all extremities per self without difficulty or deficits, negative for cords or calf pain. Neurovascular unremarkable. Neuro: Awake, alert, oriented. Cranial nerves II through XII unremarkable. Cerebellum unremarkable. Motor and sensory unremarkable throughout. Exam nonfocal. Psychiatric: Mood and affect are appropriate. Normal thought process. Answering questions appropriately. Please note that the patient was seen and evaluated during the 2019 SARS-CoV-2 novel coronavirus pandemic period. Community viral transmission is ongoing at time of this encounter and the emergency department is operating under pandemic response procedures. Medical Decision Making: Patient did have a knee x-ray performed on 07/03/2020, no evidence of fracture, soft tissue swelling or effusion. Patient's physical exam is unremarkable today. She is wearing a knee immobilizer from outside source. No soft tissue swelling is noted. We will repeat x-ray today. Today's x-ray shows no acute osseous injuries or abnormalities are noted. She already has a knee immobilizer. We will have her continue wearing this. If she continues to have pain, discussed following up with orthopedics. I have talked with the patient about today's findings, in addition to providing specific details for plan of care. We will do [id number] Voltaren cream for her knee. I have no concern for any systemic reason for pain. Reassessment at the time of disposition demonstrates that the patient is in no acute distress. The patient is stable for discharge, counseling was provided and we discussed in great detail signs and symptoms that would prompt them to return to the Emergency Department. Medication, follow up and supportive care measures were reviewed and discussed. Voices understanding and is agreeable to plan of care. Denies any further questions or concerns at this time. Diagnostics: Knee x-ray Therapeutics: None Prescription: Voltaren cream Impression: Knee pain, left Plan: 1. You were evaluated today on an emergent basis. Your x-ray shows no fracture. The x-ray you had on 07/03/2020 showed no fracture either. You can continue wearing the knee sleeve if it improves your pain. Otherwise follow-up with an orthopedic provider for further care and management. 2. You can alternate Tylenol and ibuprofen as needed for pain and fever management. 3. If your symptoms should worsen, new symptoms develop or any of the signs and symptoms we discussed should arise please return to the emergency room or call 911 (if needed). Definitive disposition and diagnosis as appropriate pending reevaluation and review of above. - Related Data Allergies Allergy/AdvReac Type Severity Reaction Status Date / Time shrimp Allergy Other Verified 08/25/20 10:51 Home Meds: Home Meds Diclofenac Sodium [Arthritis Pain] 1 dose TP QID PRN #1 tube 10/19/20 [Rx] Past Medical History - Past Health History Medical/Surgical History: Denies Medical/Surgical History HEENT History: Reports: None Cardiovascular History: Reports: None Respiratory History: Reports: None Gastrointestinal History: Reports: None Genitourinary History: Reports: None PROFESSOR OF BIOLOGICAL SCIENCES History: Reports: None Musculoskeletal History: Reports: None Neurological History: Reports: None Psychiatric History: Reports: None Endocrine/Metabolic History: Reports: None Insulin Pump Model and Supervisor Accounts Receivable: None Hematologic History: Reports: None Immunologic History: Reports: None Oncologic (Cancer) History: Reports: None Dermatologic History: Reports: None - Infectious Disease History Infectious Disease History: Reports: Chicken Pox - Past Surgical History Head Surgeries/Procedures: Reports: None HEENT Surgical History: Reports: None Cardiovascular Surgical History: Reports: None Respiratory Surgical History: Reports: None GI Surgical History: Reports: None Female Surgical History: Reports: Section Endocrine Surgical History: Reports: None Neurological Surgical History: Reports: None Musculoskeletal Surgical History: Reports: None Oncologic Surgical History: Reports: None Dermatological Surgical History: Reports: None Social & Family History - Family History Family Medical History: No Pertinent Family History - Caffeine Use Caffeine Use: Reports: None Review of Systems - Review of Systems Review Of Systems: Comprehensive ROS is negative, except as noted in HPI. ED EXAM, GENERAL - Physical Exam Exam: See Below (See dictation) Course - Vital Signs Last Recorded V/S: Last Vital Signs Temp 97.5 F 10/19/20 20:42 Pulse 104 H 10/19/20 20:42 Resp 20 10/19/20 20:42 BP 96/57 L 10/19/20 20:42 Pulse Ox 100 10/19/20 20:42 - Orders/Labs/Meds Orders: Active Orders 24 hr Category Date Time Status Knee 3V Lt [CR] Stat Exams 10/19/20 20:42 Taken Departure - Departure Time of Disposition: 21:30 Disposition: Home, Self-Care 01 Clinical Impression: Knee pain, left Qualifiers: Chronicity: unspecified Qualified Code(s): M25.562 - Pain in left knee - Discharge Information Prescriptions: Diclofenac Sodium [Arthritis Pain] 1 dose TP QID PRN #1 tube PRN Reason: Pain Instructions: Acute Knee Pain, Adult, [id number] Referrals: PCP,None [Primary Care Provider] - Forms: ED Department Discharge Additional Instructions: The following information is given to patients seen in the emergency department who are being discharged to home. This information is to outline your options for follow-up care. We provide all patients seen in our emergency department with a follow-up referral. The need for follow-up, as well as the timing and circumstances, are variable depending upon the specifics of your emergency department visit. If you don't have a primary care physician on staff, we will provide you with a referral. We always advise you to contact your personal physician following an emergency department visit to inform them of the circumstance of the visit and for follow-up with them and/or the need for any referrals to a consulting specialist. The emergency department will also refer you to a specialist when appropriate. This referral assures that you have the opportunity for follow-up care with a specialist. All of these measure are taken in an effort to provide you with optimal care, which includes your follow-up. Under all circumstances we always encourage you to contact your private physician who remains a resource for coordinating your care. When calling for follow-up care, please make the office aware that this follow-up is from your recent emergency room visit. If for any reason you are refused follow-up, please contact the [facility] Emergency Department at and asked to speak to the emergency department charge nurse. [facility] [address] [place] [id number] [address] Thank you for choosing the [facility] emergency department in [place] for your medical needs today. It was a pleasure caring for you. Today you were seen in the emergency department for knee pain. 1. You were evaluated today on an emergent basis. Your x-ray shows no fracture, soft tissue swelling or dislocations. The x-ray of the you had on 07/03/2020 showed no fracture or dislocations either. You can continue wearing the knee sleeve if it improves your pain. Otherwise follow-up with an orthopedic provider for further care and management. 2. You can alternate Tylenol and ibuprofen as needed for pain and fever management. 3. If your symptoms should worsen, new symptoms develop or any of the signs and symptoms we discussed should arise please return to the emergency room or call 911 (if needed). Sepsis Event Note (ED) - Focused Exam Vital Signs: Vital Signs Temp Pulse Resp BP Pulse Ox 10/19/20 20:42 97.5 F 104 H 20 96/57 L 100 - My Orders Last 24 Hours: My Active Orders 10/19/20 20:42 Knee 3V Lt [CR] Stat - Assessment/Plan Last 24 Hours: My Active Orders 10/19/20 20:42 Knee 3V Lt [CR] Stat
--- NOTE | 2020-10-19 21:26 | CR ---
INDICATION: Knee pain from recent fracture 2 months ago TECHNIQUE: Knee radiograph 3 views left COMPARISON: 07/03/2020 FINDINGS: Bone: No acute fractures or aggressive bone lesions are identified. Joint: The joint spaces of the medial, lateral, and patellofemoral compartments are unremarkable. No significant knee effusion is seen. Soft tissue: Unremarkable. No radiopaque foreign bodies are seen. IMPRESSION: 1. No acute osseous injuries or abnormalities are noted. Dictated by: Micheal Felipe MD @ 10/19/2020 21:24:38 (Electronically Signed)
[2020-10-19] MEDS ORDERED: Ibuprofen 800 MG Tab PO ONE (21:33)
== END 2020-10-19 21:46 | disposition home or self-care (01) ==
LOC: MW.ED 18:10
DX: M25.562 Pain in left knee (principal); Z91.013 Allergy to seafood
CPT/HCPCS: 73562; 99283; A9270

== ENCOUNTER 2020-11-15 17:18 | Emergency (ER) | payer SELFPAY ==
[2020-11-15 20:18] LABS: BLOOD UREA NITROGEN,BUN 9 mg/dL (7.0-18.0); CARBON DIOXIDE,CO2 25.4 mmol/L (21.0-32.0); CHLORIDE,CL 104 mmol/L (98-107); GLUCOSE RANDOM 87 mg/dL (74-106); POTASSIUM,K 3.9 mmol/L (3.5-5.1); SODIUM,NA 137 mmol/L (136-145)
[2020-11-15] MEDS ORDERED: Sodium Chloride 0.9% 1,000 ML IV ONE (20:38)
[2020-11-15] MEDS ORDERED: Ondansetron 4 MG/2 ML SDV IVPUSH ONE (20:38)
--- NOTE | 2020-11-15 20:52 | EDM.PDOC ---
ED HPI GENERAL MEDICAL PROBLEM - General Chief Complaint: DRIVER SALESMAN Problem Stated Complaint: 7 WEEKS , NOT FEELING WELL Time Seen by Provider: 11/15/20 20:37 Source of Information: Reports: Patient History Limitations: Reports: No Limitations - History of Present Illness INITIAL COMMENTS - FREE TEXT/NARRATIVE: HISTORY AND PHYSICAL: History of present illness: Patient is a 30-year-old female who presents to the emergency room with complaints of headache, generalized abdominal pain, nausea and vomiting in . She states she is approximately 7 weeks gestation. Patient denies any fever, chills, change in vision, syncope or near syncope. Denies any chest pain, back pain, shortness of breath or cough. Denies any diarrhea, constipation, dysuria, vaginal bleeding or discharge. Has not noted any blood in urine or stool. Patient has not been eating and drinking appropriately due to her nausea. , P: 3. Has not established with an DRIVER SALESMAN in [place]. Review of systems: As per history of present illness and below otherwise all systems reviewed and negative. Past medical history: As per history of present illness and as reviewed below otherwise nonco ntributory. Surgical history: As per history of present illness and as reviewed below otherwise noncontributory. Social history: See social history for further information Family history: As per history of present illness and as reviewed below otherwise noncontributory. Physical exam: General: Well developed and well nourished. Alert and orientated x 3. Nontoxic in appearance and in no acute distress. Vital signs are stable and have been reviewed by me. Nursing notes were reviewed. HEENT: Atraumatic, normocephalic, pupils equal and reactive bilaterally, negative for conjunctival pallor or scleral icterus, mucous membranes moist, TMs normal bilaterally, throat clear, neck supple, nontender, trachea midline. No drooling or trismus noted. No meningeal signs. No hot potato voice noted. Lungs: Clear to auscultation bilaterally. No wheezes, rales, or rhonchi. Chest nontender. Normal work of breathing, no accessory muscles used. Heart: S1S2, regular rate and rhythm without overt murmur, gallops, or rubs. No JVD. No peripheral edema Abdomen: Soft, nondistended, nontender. Normoactive bowel sounds. Negative for masses or costovertebral tenderness. Skin: Intact, warm, dry. No lesions or rashes noted. Hematologic: No petechiae or purpra. Mucosa appropriate color and normal nail bed color and refill. Extremities: Atraumatic, moves all extremities per self without difficulty or deficits, negative for cords or calf pain. Neurovascular unremarkable. Neuro: Awake, alert, oriented. Cranial nerves II through XII unremarkable. Cerebellum unremarkable. Motor and sensory unremarkable throughout. Exam nonfocal. Psychiatric: Mood and affect are appropriate. Normal thought process. Answering questions appropriately. Please note that the patient was seen and evaluated during the 2019 SARS-CoV-2 novel coronavirus pandemic period. Community viral transmission is ongoing at time of this encounter and the emergency department is operating under pandemic response procedures. Medical Decision Making: Patient is a 30-year-old female who presents to the emergency room with complaints of nausea, vomiting, headache and generally feeling unwell in . She states she is 7 weeks gestation, 8 para 3. Generalized abdominal pain, cannot localize to left or right. Abdomen is nontender. She denies any vaginal bleeding or discharge. Lab work is unremarkable with an faby ropriate quant hCG with timeline. Patient refuses pelvic exam and COVID-19 testing. US: Single live intrauterine with approximate gestational age of 7 weeks, 3 days and heart rate of 143 bpm. I have talked with the patient about today's findings, in addition to providing specific details for plan of care. Patient feels improved after fluids and Zofran. Reassessment at the time of dis position demonstrates that the patient is in no acute distress. Gave her the phone numbers for outpatient DRIVER SALESMAN as she should establish for further care and management. The patient is stable for discharge, counseling was provided and we discussed in great detail signs and symptoms that would prompt them to return to the Emergency Department. Medication, follow up and supportive care measures we re reviewed and discussed. Voices understanding and is agreeable to plan of care. Denies any further questions or concerns at this time. Diagnostics: CBC, CMP, UA, HCGU, Quant HCG, OB US Therapeutics: IV fluids, Zofran Prescription: Zofran Impression: Morning Sickness with Plan: 1. Please start and/or continue to take your vitamin with folic acid once daily. 2. Pelvic rest until cleared by your OBGYN (no tampons, sex, etc...) 3. Zofran as needed for nausea. Prescription sent to [place] pharmacy at [facility]. Tylenol as needed for pain management. 4. Establish care with an DRIVER SALESMAN and follow up for further care. 5. Return to the ED as needed and as discussed. Definitive disposition and diagnosis as appropriate pending reevaluation and review of above. abdomen, headache Pain Score (Numeric/FACES): 10 - Related Data Allergies Allergy/AdvReac Type Severity Reaction Status Date / Time shrimp Allergy Other Verified 11/15/20 17:36 Home Meds: Home Meds Ondansetron [Zofran ODT] 4 mg PO Q6H PRN #15 tab.dis 11/15/20 [Rx] Pnv No.95/Ferrous Fum/Folic AC [ Caplet] 1 tab PO DAILY 11/15/20 [History] Past Medical History - Past Health History Medical/Surgical History: Denies Medical/Surgical History HEENT History: Reports: None Cardiovascular History: Reports: None Respiratory History: Reports: None Gastrointestinal History: Reports: None Genitourinary History: Reports: None DRIVER SALESMAN History: Reports: None, Musculoskeletal History: Reports: Other (See Below) Other Musculoskeletal History: knee injury 2 months ago- on immobilizer on the left knee Neurological History: Reports: None Psychiatric History: Reports: None Endocrine/Metabolic History: Reports: None Insulin Pump Model and Carpet Tile Layer: None Hematologic History: Reports: None Immunologic History: Reports: None Oncologic (Cancer) History: Reports: None Dermatologic History: Reports: None - Infectious Disease History Infectious Disease History: Reports: Chicken Pox - Past Surgical History Head Surgeries/Procedures: Reports: None HEENT Surgical History: Reports: None Cardiovascular Surgical History: Reports: None Respiratory Surgical History: Reports: None GI Surgical History: Reports: None Female Surgical History: Reports: Section Endocrine Surgical History: Reports: None Neurological Surgical History: Reports: None Musculoskeletal Surgical History: Reports: None Oncologic Surgical History: Reports: None Dermatological Surgical History: Reports: None Social & Family History - Family History Family Medical History: No Pertinent Family History - Tobacco Use Tobacco Use Status *Q: Never Tobacco User - Caffeine Use Caffeine Use: Reports: None - Recreational Drug Use Recreational Drug Use: No ED ROS GENERAL - Review of Systems Review Of Systems: Comprehensive ROS is negative, except as noted in HPI. ED EXAM - Physical Exam Exam: See Below (See dictation) Course - Vital Signs Last Recorded V/S: Last Vital Signs Temp 98.7 F 11/15/20 17:34 Pulse 90 11/15/20 17:34 Resp 18 11/15/20 17:34 BP 98/71 11/15/20 17:34 Pulse Ox 100 11/15/20 17:34 - Orders/Labs/Meds Labs: Laboratory Tests 11/15/20 11/15/20 11/15/20 Range/Units 19:28 19:28 19:44 WBC 6.63 (4.0-11.0) K/uL RBC 3.44 L (4.30-5.90) M/uL Hgb 10.5 L (12.0-16.0) g/dL Hct 31.2 L (36.0-46.0) % MCV 90.7 (80.0-98.0) fL MCH 30.5 (27.0-32.0) pg MCHC 33.7 (31.0-37.0) g/dL RDW Std Deviation 43.0 (28.0-62.0) fl RDW Coeff of Elizabeth 13 (11.0-15.0) % Plt Count 240 (150-400) K/uL MPV 8.80 (7.40-12.00) fL Neut % (Auto) 49.0 (48.0-80.0) % Lymph % (Auto) 38.8 (16.0-40.0) % Rosebud % (Auto) 11.0 (0.0-15.0) % Eos % (Auto) 0.9 (0.0-7.0) % Baso % (Auto) 0.3 (0.0-1.5) % Neut # (Auto) 3.3 (1.4-5.7) K/uL Lymph # (Auto) 2.6 H (0.6-2.4) K/uL Rosebud # (Auto) 0.7 (0.0-0.8) K/uL Eos # (Auto) 0.1 (0.0-0.7) K/uL Baso # (Auto) 0.0 (0.0-0.1) K/uL Nucleated RBC % 0.0 /100WBC Nucleated RBCs # 0 K/uL Sodium (136-145) mmol/L Potassium (3.5-5.1) mmol/L Chloride (98-107) mmol/L Carbon Dioxide (21.0-32.0) mmol/L BUN (7.0-18.0) mg/dL Creatinine (0.6-1.0) mg/dL Est Cr Clr Drug Dosing mL/min Estimated GFR (MDRD) ml/min Glucose (74-106) mg/dL Calcium (8.5-10.1) mg/dL Total Bilirubin (0.2-1.0) mg/dL AST (15-37) IU/L ALT (14-63) IU/L Alkaline Phosphatase (46-116) U/L Total Protein (6.4-8.2) g/dL Albumin (3.4-5.0) g/dL Globulin (2.6-4.0) g/dL Albumin/Globulin Ratio (0.9-1.6) HCG, Qual (NEG) HCG, Quant mIU/mL Urine Color YELLOW Urine Appearance SLT CLOUDY Urine pH 6.5 (5.0-8.0) Ur Specific Paterson 1.025 (1.001-1.035) Urine Protein NEGATIVE (NEGATIVE) mg/dL Urine Glucose (UA) NEGATIVE (NEGATIVE) mg/dL Urine Ketones NEGATIVE (NEGATIVE) mg/dL Urine Occult Blood NEGATIVE (NEGATIVE) Urine Nitrite NEGATIVE (NEGATIVE) Urine Bilirubin NEGATIVE (NEGATIVE) Urine Urobilinogen 1.0 (<2.0) EU/dL Ur Leukocyte Esterase NEGATIVE (NEGATIVE) Urine HCG, Qual POSITIVE (NEGATIVE) 11/15/20 11/15/20 11/15/20 Range/Units 19:44 19:44 19:44 WBC (4.0-11.0) K/uL RBC (4.30-5.90) M/uL Hgb (12.0-16.0) g/dL Hct (36.0-46.0) % MCV (80.0-98.0) fL MCH (27.0-32.0) pg MCHC (31.0-37.0) g/dL RDW Std Deviation (28.0-62.0) fl RDW Coeff of Elizabeth (11.0-15.0) % Plt Count (150-400) K/uL MPV (7.40-12.00) fL Neut % (Auto) (48.0-80.0) % Lymph % (Auto) (16.0-40.0) % Rosebud % (Auto) (0.0-15.0) % Eos % (Auto) (0.0-7.0) % Baso % (Auto) (0.0-1.5) % Neut # (Auto) (1.4-5.7) K/uL Lymph # (Auto) (0.6-2.4) K/uL Rosebud # (Auto) (0.0-0.8) K/uL Eos # (Auto) (0.0-0.7) K/uL Baso # (Auto) (0.0-0.1) K/uL Nucleated RBC % /100WBC Nucleated RBCs # K/uL Sodium 137 (136-145) mmol/L Potassium 3.9 (3.5-5.1) mmol/L Chloride 104 (98-107) mmol/L Carbon Dioxide 25.4 (21.0-32.0) mmol/L BUN 9 (7.0-18.0) mg/dL Creatinine 0.5 L (0.6-1.0) mg/dL Est Cr Clr Drug Dosing 149.94 mL/min Estimated GFR (MDRD) > 60.0 ml/min Glucose 87 (74-106) mg/dL Calcium 7.8 L (8.5-10.1) mg/dL Total Bilirubin 0.2 (0.2-1.0) mg/dL AST 21 (15-37) IU/L ALT 26 (14-63) IU/L Alkaline Phosphatase 43 L (46-116) U/L Total Protein 7.0 (6.4-8.2) g/dL Albumin 3.2 L (3.4-5.0) g/dL Globulin 3.8 (2.6-4.0) g/dL Albumin/Globulin Ratio 0.8 L (0.9-1.6) HCG, Qual POSITIVE H (NEG) HCG, Quant 024152.0 mIU/mL Urine Color Urine Appearance Urine pH (5.0-8.0) Ur Specific Paterson (1.001-1.035) Urine Protein (NEGATIVE) mg/dL Urine Glucose (UA) (NEGATIVE) mg/dL Urine Ketones (NEGATIVE) mg/dL Urine Occult Blood (NEGATIVE) Urine Nitrite (NEGATIVE) Urine Bilirubin (NEGATIVE) Urine Urobilinogen (<2.0) EU/dL Ur Leukocyte Esterase (NEGATIVE) Urine HCG, Qual (NEGATIVE) Meds: Medications Discontinued Medications Generic Name Dose Route Start Last Admin Trade Name Freq PRN Reason Stop Dose Admin Sodium Chloride 1,000 mls @ 999 mls/hr 11/15/20 20:38 11/15/20 20:54 Normal Saline IV 11/15/20 21:38 999 mls/hr STAT ONE Administration Ondansetron HCl 4 mg 11/15/20 20:38 11/15/20 20:54 Ondansetron 4 Mg/2 Ml Sdv IVPUSH 11/15/20 20:39 4 mg ONETIME ONE Administration Departure - Departure Time of Disposition: 21:40 Disposition: Home, Self-Care 01 Clinical Impression: Morning sickness - Discharge Information Prescriptions: Ondansetron [Zofran ODT] 4 mg PO Q6H PRN #15 tab.dis PRN Reason: Nausea Instructions: Morning Sickness, [id number] Referrals: PCP,None [Primary Care Provider] - Forms: ED Department Discharge Additional Instructions: The following information is given to patients seen in the emergency department who are being discharged to home. This information is to outline your options for follow-up care. We provide all patients seen in our emergency department with a follow-up referral. The need for follow-up, as well as the timing and circumstances, are variable depending upon the specifics of your emergency department visit. If you don't have a primary care physician on staff, we will provide you with a referral. We always advise you to contact your personal physician following an emergency department visit to inform them of the circumstance of the visit and for follow-up with them and/or the need for any referrals to a consulting specialist. The emergency department will also refer you to a specialist when appropriate. This referral assures that you have the opportunity for follow-up care with a specialist. All of these measure are taken in an effort to provide you with optimal care, which includes your follow-up. Under all circumstances we always encourage you to contact your private physician who remains a resource for coordinating your care. When calling for follow-up care, please make the office aware that this follow-up is from your recent emergency room visit. If for any reason you are refused follow-up, please contact the [facility] Emergency Department at and asked to speak to the emergency department charge nurse. [facility] - Women's Health [address], [place] [address] [facility] [address] [place] [address] Thank you for choosing the [facility] emergency department in [place] for your medical needs today. It was a pleasure caring for you. Today you were seen in the emergency department for nausea and vomiting related to . 1. Please start and/or continue to take your vitamin with folic acid once daily. 2. Pelvic rest until cleared by your OBGYN (no tampons, sex, etc...) 3. Zofran as needed for nausea. Prescription sent to [place] pharmacy at [facility]. Tylenol as needed for pain management. 4. Establish care with an DRIVER SALESMAN and follow up for further care. 5. Return to the ED as needed and as discussed. Sepsis Event Note (ED) - Evaluation Sepsis Screening Result: No Definite Risk - Focused Exam Vital Signs: Vital Signs Temp Pulse Resp BP Pulse Ox 11/15/20 17:34 98.7 F 90 18 98/71 100
--- NOTE | 2020-11-15 21:30 | US ---
Indication: Pelvic pain Technique: Multiple grayscale and Doppler sonographic images of the pelvis. Scanning was performed transvaginally. Comparison: None Findings: There is a single live intrauterine gestation with crown-rump length of 12 mm, corresponding to approximate gestational age of 7 weeks, 3 days. A heart beat is detected with rate of 143 beats per minute. A 4 mm yolk sac is also noted. The cervix is closed. The right ovary measures 3.5 x 2.4 x 3.8 cm and contains a 3 x 2 cm cystic structure, likely a corpus luteum. Vascular flow is demonstrated to the right ovary. The left ovary measures 2.3 x 1.2 x 2.4 cm and appears unremarkable. Vascular flow is demonstrated to the left ovary. No adnexal mass is demonstrated. There is no appreciable pelvic free fluid Impression: Single live intrauterine with approximate gestational age of 7 weeks, 3 days and heart rate of 143 bpm. Dictated by Freddie Sykes MD @ 11/15/2020 9:28:18 PM (Electronically Signed)
== END 2020-11-15 21:53 | disposition home or self-care (01) ==
LOC: MW.ED 17:18
DX: O99.891 Other specified diseases and conditions complicating pregnancy (principal); Z91.018 Allergy to other foods; Z3A.01 Less than 8 weeks gestation of pregnancy
CPT/HCPCS: 36415; 76801; 80053; 81003; 81025; 84702; 84703; 85025; 96374; 99284; J2405; J7030

== ENCOUNTER 2021-07-01 09:08 | Inpatient (IN) | payer MEDICAID ==
[~2021-07-01 09:08] MED LIST: Acetaminophen/oxyCODONE 325-5 MG Tab PO PRN; Albuterol 0.083% 2.5 MG/3 ML Neb Soln NEB PRN; HYDROmorphone 1 MG/ML Syringe IVPUSH PRN; Metoclopramide 10 MG/2 ML SDV IVPUSH PRN; Morphine 2 MG/ML SYRINGE IVPUSH PRN; Naloxone 0.4 MG/ML SDV IVPUSH PRN; Ondansetron 4 MG/2 ML SDV IVPUSH PRN; diphenhydrAMINE 50 MG/ML SDV IVPUSH PRN; ePHEDrine 50 MG/ML SDV IVPUSH PRN; fentaNYL 100 MCG/2 ML SDV IVPUSH PRN
[2021-07-01] MEDS ORDERED: ceFAZolin 2 GM in Premix Bag 1 BAG IV ONE (09:18)
[2021-07-01] MEDS ORDERED: Sodium Chloride 0.9% 20 ML SDV IV PRN (09:18)
[2021-07-01] MEDS ORDERED: Citric Acid/Sodium Citrate Solution 30 ML Cup PO ONE (09:18)
[2021-07-01] MEDS ORDERED: Sodium Chloride 0.9% 10 ML Syringe FLUSH PRN (09:18)
[2021-07-01] MEDS ORDERED: Sodium Chloride 0.9% 2.5 ML Syringe FLUSH PRN (09:18)
[2021-07-01] MEDS ORDERED: Oxytocin/0.9 % Sodium Chloride 30 UNIT/500 ML BAG IV SCH (09:30)
[2021-07-01] MEDS: Lactated Ringers 1,000 ML IV SCH ×2 (09:52→11:16)
[2021-07-01] MEDS ORDERED: Ondansetron 4 MG/2 ML SDV ONE ×2 (10:06→10:07)
[2021-07-01] MEDS ORDERED: Oxytocin 10 Units/1 ML SDV ONE (10:06)
[2021-07-01] MEDS ORDERED: Dexamethasone 4 MG/ML 5 ML MDV ONE (10:07)
[2021-07-01] MEDS ORDERED: Phenylephrine 1% 10 MG/ML SDV ONE (10:07)
[2021-07-01] MEDS ORDERED: Lidocaine 2% 100 MG/5 ML Syringe ONE (10:07)
[2021-07-01] MEDS ORDERED: fentaNYL 100 MCG/2 ML SDV ONE (10:12)
[2021-07-01] MEDS ORDERED: Ropivacaine/Ketorolac/Ketamine 100-15-30/50 ML Syringe INJECT ONE (10:12)
[2021-07-01] MEDS ORDERED: Midazolam 1 MG/ML 2 ML SDV ONE (13:06)
[2021-07-01] MEDS ORDERED: Lidocaine 2% 5 ML SDV ONE (13:06)
[2021-07-01] MEDS ORDERED: Lactated Ringers 1,000 ML IV SCH (13:45)
[2021-07-01] MEDS ORDERED: Ondansetron 4 MG/2 ML SDV IVPUSH PRN (13:45)
[2021-07-01] MEDS ORDERED: Acetaminophen/oxyCODONE 325-5 MG Tab PO PRN (13:45)
[2021-07-01] MEDS ORDERED: Lanolin 100% Cream 7 GM Tube TOP PRN (13:45)
[2021-07-01] MEDS ORDERED: diphenhydrAMINE 50 MG/ML SDV IVPUSH PRN (13:45)
[2021-07-01] MEDS ORDERED: Bisacodyl 10 MG Supp RECTAL PRN (13:45)
[2021-07-01] MEDS: Ketorolac 30 MG/ML SDV IVPUSH SCH ×2 (14:55→21:54)
[2021-07-01] MEDS: Ferrous Sulfate 325 MG Tab PO SCH (21:54)
[2021-07-01] MEDS: Docusate Sodium 100 MG Cap PO SCH (21:54)
[2021-07-02] MEDS: Ketorolac 30 MG/ML SDV IVPUSH SCH ×3 (03:26→14:54)
[2021-07-02] MEDS: Ferrous Sulfate 325 MG Tab PO SCH ×2 (08:41→20:54)
[2021-07-02] MEDS: Docusate Sodium 100 MG Cap PO SCH ×2 (08:41→20:54)
[2021-07-02] MEDS: Acetaminophen/oxyCODONE 325-5 MG Tab PO PRN ×2 (10:36→16:48)
[2021-07-02] MEDS: Ibuprofen 800 MG Tab PO PRN (20:54)
[2021-07-03] MEDS: Acetaminophen/oxyCODONE 325-5 MG Tab PO PRN ×2 (02:47→11:45)
[2021-07-03] MEDS: Ibuprofen 800 MG Tab PO PRN (05:26)
[2021-07-03] MEDS: Ferrous Sulfate 325 MG Tab PO SCH (08:05)
[2021-07-03] MEDS: Docusate Sodium 100 MG Cap PO SCH (08:05)
== END 2021-07-03 12:00 | disposition home or self-care (01) | DRG 788 ==
LOC: MW.OB 09:08
PROVIDERS: ADMIT Obstetrics & Gynecology; ATTEND Obstetrics & Gynecology
PROC: 10D00Z1 Extraction of Products of Conception, Low, Open Approach (ICD-10-PCS; principal; 2021-07-01)
PROC: 0DNU0ZZ Release Omentum, Open Approach (ICD-10-PCS; 2021-07-01)
PROC: 0TNB0ZZ Release Bladder, Open Approach (ICD-10-PCS; 2021-07-01)
DX: O34.211 Maternal care for low transverse scar from previous cesarean delivery (principal); Z3A.39 39 weeks gestation of pregnancy; Z37.0 Single live birth; Z86.16 Personal history of COVID-19; Z88.8 Allergy status to other drugs, medicaments and biological substances; O99.62 Diseases of the digestive system complicating childbirth; K66.0 Peritoneal adhesions (postprocedural) (postinfection); Z20.822 Contact with and (suspected) exposure to COVID-19
CPT/HCPCS: 01961; 36415; 59025; 64488; 80305-QW; 82803; 85014; 85018; 85027; 86592; 86850; 86900; 86901; A9270-GY; J0131; J1100; J1200; J1790; J1885; J2250; J2370; J2405; J2590; J3010; J7120; U0002

== ENCOUNTER 2021-10-27 16:19 | Emergency (ER) | payer MEDICAID | END 2021-10-27 18:29 | disposition left against medical advice (07) | LOC: MW.ED 16:19 | DX: Z53.21 Procedure and treatment not carried out due to patient leaving prior to being seen by health care provider (principal) ==

== ENCOUNTER 2023-01-19 10:23 | Emergency (ER) | payer SELFPAY ==
[2023-01-19] MEDS ORDERED: Acetaminophen 500 MG Tab PO STA (10:43)
[2023-01-19] MEDS ORDERED: Benzonatate 100 MG Cap PO STA (10:43)
[2023-01-19] MEDS ORDERED: Ibuprofen 800 MG Tab PO STA (10:43)
[2023-01-19 11:21] LABS: CORONAVIRUS COVID-19 NAA NEGATIVE (NEGATIVE); INFLUENZA A NAA POSITIVE (NEGATIVE); INFLUENZA B NAA NEGATIVE (NEGATIVE)
[2023-01-19] MEDS ORDERED: Dexamethasone 4 MG Tab PO STA (11:58)
== END 2023-01-19 12:10 | disposition home or self-care (01) ==
LOC: MW.ED 10:23
DX: J02.0 Streptococcal pharyngitis (principal); J10.1 Influenza due to other identified influenza virus with other respiratory manifestations; Z20.822 Contact with and (suspected) exposure to COVID-19; Z79.899 Other long term (current) drug therapy; Z91.013 Allergy to seafood
CPT/HCPCS: 0240U; 87651; 99284; A9270; J8540; 99283

== ENCOUNTER 2023-10-13 13:43 | Emergency (ER) | payer SELFPAY ==
[2023-10-13 16:11] LABS: BASOPHILS ABSOLUTE AUTO 0.05 K/uL (0.00-0.20); BASOPHILS PERCENT AUTO 0.5 % (0.0-1.0); EOSINOPHILS ABSOLUTE AUTO 0.05 K/uL (0.00-0.45); EOSINOPHILS PERCENT AUTO 0.5 % (0.0-6.0); HEMATOCRIT 37.5 % (37.0-47.0); HEMOGLOBIN 12.7 g/dL (12.0-16.0); IMMATURE GRAN ABSOLUTE AUTO 0.02 K/uL (0.00-0.05); IMMATURE GRAN PERCENT AUTO 0.2 % (0.0-0.4); LYMPHOCYTES ABSOLUTE AUTO 2.23 K/uL (1.00-4.80); LYMPHOCYTES PERCENT AUTO 24.3 % (24.0-44.0); MEAN CORPUSCULAR HEMOGLOBIN 30.6 pg (28.0-32.0); MEAN CORPUSCULAR HGB CONC 33.9 g/dL (32.0-36.0); MEAN CORPUSCULAR VOLUME 90.4 fL (83.0-99.0); MEAN PLATELET VOLUME 9.4 fL (9.4-12.3); MONOCYTES ABSOLUTE AUTO 0.55 K/uL (0.00-0.80); NEUTROPHILS ABSOLUTE AUTO 6.28 K/uL (1.80-7.70); NEUTROPHILS PERCENT AUTO 68.5 % (41.0-71.0); PLATELET COUNT,PLT 295 K/uL (150-400); RED BLOOD CELL COUNT 4.15 M/uL (4.10-5.30); WHITE BLOOD CELL COUNT,WBC 9.18 K/uL (3.9-11.3)
[2023-10-13 16:36] LABS: A/G RATIO 0.9 (0.9-1.6); ALBUMIN 3.7 g/dL (3.4-5.0); BILIRUBIN TOTAL 0.5 mg/dL (0.2-1.0); CALCIUM 9.2 mg/dL (8.5-10.1); CARBON DIOXIDE,CO2 30.1 mmol/L (21.0-32.0); CREATININE 0.8 mg/dL (0.6-1.0); EST CRCL DRUG DOSING (CG) 95.38 mL/min; POTASSIUM,K 4.1 mmol/L (3.5-5.1); PROTEIN TOTAL,TP 7.9 g/dL (6.4-8.2)
[2023-10-13 16:51] LABS: APPEARANCE,URINE CLEAR; BILIRUBIN,URINE NEGATIVE (NEGATIVE); COLOR,URINE YELLOW; GLUCOSE,URINE NEGATIVE (NEGATIVE); KETONES,URINE NEGATIVE (NEGATIVE); LEUKOCYTE ESTERASE,URINE NEGATIVE (NEGATIVE); NITRITE,URINE NEGATIVE (NEGATIVE); OCCULT BLOOD,URINE SMALL (NEGATIVE); PH,URINE 7.5 (5.0-8.0); PROTEIN,URINE NEGATIVE (NEGATIVE); UROBILINOGEN,URINE 0.2 EU/dL (<2.0)
[2023-10-13] MEDS: Sodium Chloride 0.9% 1,000 ML IV ONE (16:59)
[2023-10-13] MEDS: Ondansetron 4 MG/2 ML SDV IVPUSH ONE (17:00)
[2023-10-13] MEDS: Ketorolac 30 MG/ML SDV IVPUSH ONE (17:02)
[2023-10-13 17:14] LABS: EPITHELIAL CELLS,URINE RARE (NONE-FEW); RBC,URINE 0-3 (0-2/HPF); WBC,URINE NONE SEEN (0-5/HPF)
[2023-10-13 17:15] LABS: BACTERIA,URINE FEW (NEGATIVE); MUCUS,URINE MODERATE (NONE-MOD)
== END 2023-10-13 18:10 | disposition home or self-care (01) ==
LOC: MW.ED 13:43
DX: K52.9 Noninfective gastroenteritis and colitis, unspecified (principal); Z91.013 Allergy to seafood; Z75.8 Other problems related to medical facilities and other health care
CPT/HCPCS: 36415; 80053; 81001; 81025; 83690; 85025; 96361; 96374; 96375; 99284; J1885; J2405; J7030

== ENCOUNTER 2024-02-19 16:58 | Emergency (ER) | payer SELFPAY ==
[2024-02-19] MEDS ORDERED: Sodium Chloride 0.9% 10 ML Syringe FLUSH PRN (17:14)
[2024-02-19] MEDS ORDERED: Sodium Chloride 0.9% 2.5 ML Syringe FLUSH PRN (17:14)
[2024-02-19 17:20] LABS: BASOPHILS ABSOLUTE AUTO 0.06 K/uL (0.00-0.20); BASOPHILS PERCENT AUTO 0.5 % (0.0-1.0); EOSINOPHILS ABSOLUTE AUTO 0.04 K/uL (0.00-0.45); EOSINOPHILS PERCENT AUTO 0.4 % (0.0-6.0); HEMATOCRIT 42.7 % (37.0-47.0); HEMOGLOBIN 14.7 g/dL (12.0-16.0); IMMATURE GRAN ABSOLUTE AUTO 0.03 K/uL (0.00-0.05); IMMATURE GRAN PERCENT AUTO 0.3 % (0.0-0.4); LYMPHOCYTES ABSOLUTE AUTO 2.07 K/uL (1.00-4.80); LYMPHOCYTES PERCENT AUTO 18.8 % (24.0-44.0); MEAN CORPUSCULAR HEMOGLOBIN 30.5 pg (28.0-32.0); MEAN CORPUSCULAR HGB CONC 34.4 g/dL (32.0-36.0); MEAN CORPUSCULAR VOLUME 88.6 fL (83.0-99.0); MEAN PLATELET VOLUME 9.5 fL (9.4-12.3); MONOCYTES ABSOLUTE AUTO 0.47 K/uL (0.00-0.80); MONOCYTES PERCENT AUTO 4.3 % (0.0-8.0); NEUTROPHILS ABSOLUTE AUTO 8.35 K/uL (1.80-7.70); NEUTROPHILS PERCENT AUTO 75.7 % (41.0-71.0); PLATELET COUNT,PLT 358 K/uL (150-400); RED BLOOD CELL COUNT 4.82 M/uL (4.10-5.30); WHITE BLOOD CELL COUNT,WBC 11.02 K/uL (3.9-11.3)
[2024-02-19] MEDS: Ondansetron 4 MG/2 ML SDV IVPUSH STA (17:24)
[2024-02-19] MEDS: Morphine 4 MG/ML Syringe IVPUSH STA (17:24)
[2024-02-19] MEDS: Sodium Chloride 0.9% 1,000 ML IV STA ×2 (17:24→18:57)
[2024-02-19 17:42] LABS: A/G RATIO 0.9 (0.9-1.6); ALANINE AMINOTRANSFERASE,ALT 31 IU/L (14-63); ALBUMIN 4.5 g/dL (3.4-5.0); ALKALINE PHOSPHATASE 77 U/L (46-116); ASPARTATE AMNIOTRANSFERASE,AST 41 IU/L (15-37); BILIRUBIN TOTAL 0.9 mg/dL (0.2-1.0); BLOOD UREA NITROGEN,BUN 12 mg/dL (7.0-18.0); CARBON DIOXIDE,CO2 23.7 mmol/L (21.0-32.0); CHLORIDE,CL 97 mmol/L (98-107); GLUCOSE RANDOM 164 mg/dL (74-106); LIPASE 29 U/L (16-77); POTASSIUM,K 3.3 mmol/L (3.5-5.1); PROTEIN TOTAL,TP 9.5 g/dL (6.4-8.2); SODIUM,NA 136 mmol/L (136-145)
[2024-02-19 17:46] LABS: ESTIMATED GFR 77 mL/min (>60)
[2024-02-19] MEDS: Potassium Chloride 20 MEQ Tab.ER PO STA (18:57)
[2024-02-19] MEDS: Iopamidol 755 MG/ML 500 ML Multipack Bottle IVPUSH ONE (19:37)
== END 2024-02-19 21:13 | disposition home or self-care (01) ==
LOC: MW.ED 16:58
DX: K52.9 Noninfective gastroenteritis and colitis, unspecified (principal); Z91.013 Allergy to seafood; Z75.8 Other problems related to medical facilities and other health care; Z79.899 Other long term (current) drug therapy
CPT/HCPCS: 36415; 74177; 80053; 83690; 84484; 84703; 85025; 87428; 93005; 96361; 96374; 96375; 99285; A9270; J2270; J2405; J7030; Q9967

== ENCOUNTER 2024-03-20 10:27 | Emergency (ER) | payer SELFPAY ==
[2024-03-20] MEDS: traMADol 50 MG Tab PO ONE (12:25)
== END 2024-03-20 13:46 | disposition home or self-care (01) ==
LOC: MW.ED 10:27
DX: S01.81XA Laceration without foreign body of other part of head, initial encounter (principal); S09.90XA Unspecified injury of head, initial encounter; Z75.8 Other problems related to medical facilities and other health care; Z91.013 Allergy to seafood; W01.198A Fall on same level from slipping, tripping and stumbling with subsequent striking against other object, initial encounter
CPT/HCPCS: 70450; 70486; 72125; 99283; A9270

== ENCOUNTER 2024-04-26 15:49 | Emergency (ER) | payer SELFPAY ==
[2024-04-26] MEDS: Sodium Chloride 0.9% 1,000 ML IV ONE (16:05)
[2024-04-26] MEDS: droPERidol 2.5 MG/ML SDV IVPUSH ONE (16:05)
[2024-04-26 16:07] LABS: BASOPHILS ABSOLUTE AUTO 0.06 K/uL (0.00-0.20); BASOPHILS PERCENT AUTO 0.6 % (0.0-1.0); EOSINOPHILS ABSOLUTE AUTO 0.03 K/uL (0.00-0.45); EOSINOPHILS PERCENT AUTO 0.3 % (0.0-6.0); HEMATOCRIT 39.8 % (37.0-47.0); HEMOGLOBIN 13.5 g/dL (12.0-16.0); IMMATURE GRAN ABSOLUTE AUTO 0.02 K/uL (0.00-0.05); IMMATURE GRAN PERCENT AUTO 0.2 % (0.0-0.4); LYMPHOCYTES ABSOLUTE AUTO 2.48 K/uL (1.00-4.80); MEAN CORPUSCULAR HEMOGLOBIN 30.8 pg (28.0-32.0); MEAN CORPUSCULAR HGB CONC 33.9 g/dL (32.0-36.0); MEAN CORPUSCULAR VOLUME 90.7 fL (83.0-99.0); MEAN PLATELET VOLUME 9.5 fL (9.4-12.3); MONOCYTES ABSOLUTE AUTO 0.45 K/uL (0.00-0.80); MONOCYTES PERCENT AUTO 4.2 % (0.0-8.0); NEUTROPHILS ABSOLUTE AUTO 7.73 K/uL (1.80-7.70); NEUTROPHILS PERCENT AUTO 71.7 % (41.0-71.0); PLATELET COUNT,PLT 318 K/uL (150-400); RED BLOOD CELL COUNT 4.39 M/uL (4.10-5.30); WHITE BLOOD CELL COUNT,WBC 10.77 K/uL (3.9-11.3)
[2024-04-26 16:35] LABS: A/G RATIO 0.9 (0.9-1.6); ALBUMIN 4.2 g/dL (3.4-5.0); BILIRUBIN TOTAL 0.5 mg/dL (0.2-1.0); CALCIUM 9.4 mg/dL (8.5-10.1); CARBON DIOXIDE,CO2 19.4 mmol/L (21.0-32.0); CREATININE 0.8 mg/dL (0.6-1.0); EST CRCL DRUG DOSING (CG) 95.38 mL/min; POTASSIUM,K 3.7 mmol/L (3.5-5.1); PROTEIN TOTAL,TP 8.8 g/dL (6.4-8.2)
== END 2024-04-26 17:54 | disposition home or self-care (01) ==
LOC: MW.ED 15:49
DX: R11.2 Nausea with vomiting, unspecified (principal); F12.90 Cannabis use, unspecified, uncomplicated; Z91.013 Allergy to seafood; Z79.899 Other long term (current) drug therapy
CPT/HCPCS: 36415; 80053; 83690; 84703; 85025; 96361; 96374; 99284; J1790; J7030